=== PATIENT | female | born 1985 | race Caucasian/White ===

== ENCOUNTER 2020-01-20 10:40 | Outpatient (CLI) | payer OTHER, SELFPAY ==
[2020-01-20 11:36] LABS: Hematocrit 36.6 % (37.0-47.0); Hemoglobin 12.1 g/dL (12.0-15.0); Mean Corpuscular HGB Conc 33.1 g/dl (32-36); Mean Corpuscular Hemoglobin 28.4 pg (26-34); Mean Corpuscular Volume 85.9 fl (80-100); Mean Platelet Volume 9.6 fl (7.4-10.4); Platelet Count Result 271 k/mm3 (150-375); Red Blood Count 4.26 M/mm3 (4.2-5.4); White Blood Count 8.4 K/mm3 (4.5-10.0)
[2020-01-22 08:51] LABS: Rapid Plasma Reagin Non-Reactive (NonReactive)
== END 2020-01-20 10:41 | disposition home or self-care (01) ==
PROVIDERS: Visit Provider Obstetrics & Gynecology
DX: Z34.90 Encounter for supervision of normal pregnancy, unspecified, unspecified trimester (principal); Z3A.00 Weeks of gestation of pregnancy not specified
CPT/HCPCS: 36415; 85027; 86592; 86850; 86900; 86901

== ENCOUNTER 2020-01-22 11:24 | Inpatient (IN) | payer OTHER, SELFPAY ==
[2020-01-22] VITALS (41 sets, daily range): BP systolic 106–132; BP diastolic 55–85; PULSE 58–85; RESP 16–20; TEMP 36.1–36.3; O2SAT 96–100; BMI 31.7
[2020-01-22] MEDS: LACTATED RINGERS 1,000 ML 999 ML IV CONT (11:45)
--- NOTE | 2020-01-22 11:58 | LDADM ---
This patient, Milli Pinto, was admitted to Labor/Delivery/Recovery 120 on 01/22/20 at 11:24. Plans for labor, pain management and were discussed with patient. Patient/family oriented to hospital policies and general routines including ID bracelet, bed and alarms, visiting hours, pain management, procedures, bathroom and other care routines, personal items, smoking policy, room service/diet and guest tray routines, security routines, and visiting hours. Patient/Family are encouraged to report perceived risks to care and to ask questions if they do not understand what they are told or what they should do. See OBIX for further documentation.
--- NOTE | 2020-01-22 12:22 | WPDANESEPPF ---
Anes - Initial Pre Proc Eval Procedure: Operation Date: 01/22/20 13:30 Proposed Procedures p Repeat Section - Marc Gray MD Date/Time: 01/22/20 12:22 Surgeon: Marc Gray MD Pre Op Diagnosis: Scheduled C Section Patient Data Age: 34 Gender: F Height: 1.65 m Weight: 86.5 kg Last Vital Signs Pulse 83 01/22/20 12:01 BP 127/84 01/22/20 12:01 Allergies Allergy/AdvReac Type Severity Reaction Status Date / Time cephalexin Allergy Unknown RASH Unverified 01/30/19 11:02 Home Medications Medication Instructions Recorded Confirmed Type [id number] fumarate-FA 1 tablet PO DAILY 01/22/20 01/22/20 History [] ferrous sulfate [Slow Fe] 142 mg PO DAILY 01/22/20 01/22/20 History levothyroxine 112 mcg PO DAILY 01/22/20 01/22/20 History Patient hx anesthesia problems: none Family hx anesthesia problems: none PMFSH Past Medical History Medical History (Updated 01/22/20 @ 12:23 by King Miles MD) GDM (gestational diabetes mellitus) PIH ( induced hypertension) Family History Family History (Updated 01/15/20 @ 13:36 by Dee Chaidez RN) Mother Breast cancer Hypertension Father Hypertension Grandparent Diabetes mellitus Grandparent Ovarian cancer Social History Social History Smoking status: Never smoker Second hand tobacco smoke exposure: No Substance use: never Gender identity (if verbalized by the patient): Female Sexual Orientation (if Verbalized by the Patient): Straight or Heterosexual Spiritual care concerns: No Anes - Eval Final PreProcedure Day of Procedure 01/22/20 12:22 Patient weight: obese Heart: regular rate and rhythm Lungs: clear to auscultation and normal air movement Airway: Mallampati scale class II Neurological: alert and oriented Last oral intake: >/= 8 hours ASA classification: III Emergent: no Anesthetic plan: proceed Anesthesia type and monitoring: regional spinal Informed Consent: The patient's anesthetic plan and its attendant risks and benefits were discussed with the patient/family/POA. Questions were solicited and answers provided to the satisfaction of the patient/family/POA.
--- NOTE | 2020-01-22 12:50 | PM.IMHP ---
H&P: HPI History of Present Illness Chief complaint: Scheduled C Section Narrative: Milli Pinto is a 34 year old female This patient is a 35-year-old multiparous female with previous delivery. We have agreed to perform repeat delivery. She denies any contractions, loss of fluid, vaginal bleeding. She denies any chest pain or shortness of breath. She denies any nausea, vomiting, fever, chills. She denies any blurry vision, epigastric pain. She denies any edema. patient's was complicated with gestational hypertension. We have agreed to perform at 37 weeks. Review of Systems Constitutional: Constitutional: Reports no additional constitutional complaints, Denies fatigue, Denies headache(s), Denies lethargy and Denies weakness Eyes: Eyes: Reports no additional eye complaints, Denies blurry vision and Denies photophobia ENT: Reports as per HPI, Denies headache(s) and Denies neck pain Cardiovascular: Cardiovascular: Denies chest pain, Denies diaphoresis, Denies leg edema, Denies palpitations and Denies dyspnea Respiratory: Respiratory: Denies hemoptysis, Denies dyspnea and Denies wheezing Gastrointestinal: Gastrointestinal: Denies abdominal pain, Denies melena, Denies bloating, Denies hematochezia, Denies nausea and Denies vomiting Genitourinary: Genitourinary: Reports no additional female genitourinary complaints Musculoskeletal: Musculoskeletal: Denies joint swelling, Denies neck pain, Denies numbness and Denies stiffness Neurologic: Denies Abnormal speech present, Denies confusion, Denies headache(s), Denies numbness and Denies weakness Psychiatric: Psychiatric: Denies anxiety, Denies confusion, Denies depression, Denies homicidal ideation and Denies suicidal ideation Endocrine: Endocrine: Denies fatigue and Denies palpitations Allergic/Immunologic: Allergic/Immunologic: Denies wheezing PMFSH Past Medical History Medical History (Updated 01/22/20 @ 12:23 by King Miles MD) GDM (gestational diabetes mellitus) PIH ( induced hypertension) Family History Family History (Updated 01/15/20 @ 13:36 by Dee Chaidez RN) Mother Breast cancer Hypertension Father Hypertension Grandparent Diabetes mellitus Grandparent Ovarian cancer Social History Social History Smoking status: Never smoker Second hand tobacco smoke exposure: No Substance use: never Gender identity (if verbalized by the patient): Female Sexual Orientation (if Verbalized by the Patient): Straight or Heterosexual Spiritual care concerns: No Meds Home Medications and Allergies Home Medications Medication Instructions Recorded Confirmed Type [id number] fumarate-FA 1 tablet PO DAILY 01/22/20 01/22/20 History [] ferrous sulfate [Slow Fe] 142 mg PO DAILY 01/22/20 01/22/20 History levothyroxine 112 mcg PO DAILY 01/22/20 01/22/20 History Allergies Allergy/AdvReac Type Severity Reaction Status Date / Time cephalexin Allergy Mild RASH Verified 01/22/20 12:49 Vital Signs Vital Signs - 24 hr 01/22/20 11:46 01/22/20 12:01 Pulse Rate 85 83 Blood Pressure 123/85 127/84 Exam Const: General: healthy appearing, comfortable and no acute distress; No confusion Orientation/consciousness: No confusion Eyes: Direct Ophthalmoscopy: No photophobia Resp: Auscultation: clear to auscultation bilaterally, no rales, no rhonchi and no wheezes Cardio: Rate: regular rate Heart sounds: no click, no murmurs and no rubs GI: Inspection: non-distended GI Palp: No abdominal tenderness Auscultation: normal bowel sounds Neuro: General: No confusion Speech: No Abnormal speech present Extrem: General: normal to inspection, no pedal edema and no calf tenderness Assessment and Plan Assessment and plan (1) Previous section: Code(s): Z98.891 - History of uterine scar from previous surgery Status: Acute (2) PIH ( induced hypert
[2020-01-22] MEDS: LACTATED RINGERS 1,000 ML 125 ML IV CONT (12:59)
[2020-01-22] MEDS: CLINDAMYCIN 900 MG/NS 50 ML 900 MG/50 ML PIGGYBACK 50 MG IVPB (13:00)
[2020-01-22] MEDS: KETOROLAC 30 MG/ML VIAL (*BKC) IV PUSH (13:46)
--- NOTE | 2020-01-22 14:16 | P.OP_ITS ---
Procedure Note - Detailed Date of procedure: 01/22/20 Pre-op diagnosis: Scheduled C Section previous , gdm, ghtn Post-op diagnosis: same Procedure performed: low-transverse delivery Description of procedure: The patient was taken the operating room. She was prepped and draped in the dorsal supine position with leftward tilt after induction of spinal anesthetic. When anesthesia was found to be adequate a low- transverse skin incision was made and carried down to the level the fascia with the knife.The old scar was resected with the scalpel in an eliptical fashoin. The fascial incision was made at the midline with a scalpel. The fascial incision was extended laterally with Diez scissors. The fascia was tented upward superior and inferior with Carroll clamps. The rectus muscles were dissected off bluntly. The rectus muscles at the midline. The preperitoneal fat was dissected bluntly at the superior aspect of the separate the rectus muscles. The peritoneal cavity was entered bluntly in the same area. The peritoneal incision was extended superior and inferior with good visualization of bladder. Bladder blade was inserted. A low-transverse incision was made on the uterus with the scalpel. It was carried down the level of the amniotic cavity with a knife. The amniotic cavity bluntly. The uterine incision was made laterally with blunt traction. The infant was delivered. The cord was clamped and cut. The was handed off to waiting pediatric staff. Cord bloods were obtained. The placenta was removed manually. The uterus was exteriorized. Uterus cleared of all clots and debris. Uterus closed in 0 Vicryl in a running locked fashion. An imbricating layer of 0 Vicryl was also placed on the to bolster the closure. The uterus was returned to the abdomen. The gutters were cleared of all clots and debris. The fascia was closed 0 Vicryl in a running fashion. Subcutaneous tissue was irrigated and bleeding areas were cauterized. Scar in the sucutaneous fat was excised to allow the retracter skin to return to a flat orientation in the area of the incision. The skin was closed with subcuticular 4O monocryl. The incision was covered with derma mccracken. The patient tolerated the procedure well. She was taken recovery room stable condition. Sponge, lap, needle counts were correct x2. Anesthesia: spinal Surgeon: Marc Gray MD Estimated blood loss (mL): 240 Drains: No Packing: No Pathology: none sent Complications: No immediate complications Condition: stable Disposition: floor Findings: Retraction of the skin at the old incision site, otherwise Normal maternal anatomy. Average size infant with normal Apgars.
--- NOTE | 2020-01-22 14:56 | SUR.PHASEI ---
1430 INTO OBR VIA STRETCHER. MONITORS APPLIED. IVF INFUSING WELL. INTERIANO DRAINING CLEAR YELLOW. SCD'S REMAIN, DRESSING DRY AND INTACT, FUNDUS FIRM AND SMALL LOCHIA....SOME NAUSEA, WILL GIVE ZORFAN.
[2020-01-22] MEDS: LORATADINE 10 MG TABLET (17:23)
[2020-01-22] MEDS: OXYTOCIN 30 UNITS/NS 500 ML 30 UNITS/500 ML BAG 125 UNITS IV CONT (17:24)
--- NOTE | 2020-01-22 17:36 | SUR.PHASEI ---
1630 RECOVERY COMPLETE. ASSESSMENT REMAINS STABLE EXCEPT THE OFF AND ON NAUSEA SHE WAS MEDICATED FOR AT 1442. IV GOING AT 125 PER PUMP, SCD'S REMAIN DRESSING DRY AND INTACT AND PP REMAINS THE SAME. REPORT TO YOSELIN SALAZAR RN AND READY FOR TRANSPORT.
--- NOTE | 2020-01-22 17:55 | PC.NURSE ---
Addendum entered by Melani Giordano RN 01/22/20 17:55: admitted to unit at 1655. Original Note: Patient transferred to post room #284 per stretcher. Support person present. Oriented to unit, room, information board, rooming in, admission packet and security measures. Patient verbalizes understanding.
[2020-01-22] MEDS: diphenhydrAMINE HCl INJ 50 MG/ML VIAL 25 MG IV PUSH (19:03)
[2020-01-22] MEDS: ONDANSETRON INJ 4 MG/2 ML VIAL IV PUSH (20:22)
[2020-01-22] MEDS: SIMETHICONE 80 MG TAB.CHEW PO (20:22)
[2020-01-23] MEDS: SIMETHICONE 80 MG TAB.CHEW PO ×7 (02:25→23:31)
[2020-01-23] MEDS: ONDANSETRON INJ 4 MG/2 ML VIAL IV PUSH (02:26)
[2020-01-23] MEDS: KETOROLAC 30 MG/ML VIAL (*BKC) IV PUSH (02:29)
[2020-01-23 05:23] VITALS: BP 106/67; PULSE 54; RESP 18; TEMP 37; O2SAT 100
[2020-01-23 05:50] LABS: Basophils Percent Auto 0.5 % (0.2-1.2); Eosinophils Absolute Auto 0.1 K/mm3 (0-0.3); Eosinophils Percent Auto 1.5 % (0-4.4); Hematocrit 30.7 % (37.0-47.0); Hemoglobin 10.2 g/dL (12.0-15.0); Immature Granulocyte Absolute 0.04 K/mm3 (0.00-0.031); Immature Granulocyte Percent A 0.5 % (0-0.5); Lymphocytes Absolute Auto 2.47 K/mm3 (0.9-3.2); Lymphocytes Percent Auto 29.2 % (18.3-44.2); Mean Corpuscular HGB Conc 33.2 g/dl (32-36); Mean Corpuscular Hemoglobin 28.3 pg (26-34); Mean Corpuscular Volume 85.3 fl (80-100); Mean Platelet Volume 9.7 fl (7.4-10.4); Monocytes Absolute Auto 0.7 K/mm3 (0.1-0.6); Monocytes Percent Auto 8.3 % (2.6-8.5); Neutrophils Absolute Auto 5.1 K/mm3 (1.3-6.7); Platelet Count Result 228 k/mm3 (150-375); White Blood Count 8.5 K/mm3 (4.5-10.0)
[2020-01-23] MEDS: LEVOTHYROXINE SODIUM 112 MCG TABLET PO (06:56)
--- NOTE | 2020-01-23 07:52 | P.PNOB_ITS ---
OB - PN: Subj Subjective Date/time seen: 01/23/20 07:52 Patient comments: no complaints, pain well controlled, tolerating diet and flatus present OB - PN: Obj Data Labs CBC & Chem 7: 01/23/20 05:27 Labs: Laboratory Results - last 24 hr 01/23/20 05:27 WBC 8.5 RBC 3.60 L Hgb 10.2 L Hct 30.7 L MCV 85.3 MCH 28.3 MCHC 33.2 RDW 15.0 H Plt Count 228 MPV 9.7 Immature Gran % (Auto) 0.5 Neut % (Auto) 60.0 Lymph % (Auto) 29.2 [place] % (Auto) 8.3 Eos % (Auto) 1.5 Baso % (Auto) 0.5 Lymph # (Auto) 2.47 [place] # (Auto) 0.7 H Eos # (Auto) 0.1 Baso # (Auto) 0.0 Abs Immat Gran (auto) 0.04 H Absolute Neuts (auto) 5.1 Absolute Nucleated RBC 0.0 Nucleated RBC % 0.0 OB - PN A/P Plan day: 1 Comments: Post Op LTCS - no problems, routine recovery Time Spent With Patient Time: Total time spent is greater than 50% in coordination of care (as do cumented) at patient's floor/unit and/or counseling patient: Exam Const: General: cooperative, healthy appearing, comfortable and no acute distress Resp: Auscultation: no crackles, no rales, no rhonchi and no wheezes Cardio: Rhythm: regular rhythm Heart sounds: no click and no murmurs GI: Inspection: non-distended Auscultation: normal bowel sounds Extrem: General: normal to inspection, no pedal edema and no calf tenderness
[2020-01-23 08:10] VITALS: BP 113/69; PULSE 71; RESP 18; TEMP 36.7; O2SAT 99
[2020-01-23] MEDS: MULTIVIT/MIN/PREN/FOL AC/IRON TABLET 1 TAB PO (08:28)
[2020-01-23] MEDS: DOCUSATE SODIUM 100 MG CAPSULE PO ×2 (08:28→15:58)
[2020-01-23] MEDS: IBUPROFEN 600 MG TABLET PO ×2 (09:02→15:58)
[2020-01-23 12:30] VITALS: BP 119/74; PULSE 68; RESP 99; TEMP 36.6; O2SAT 18
--- NOTE | 2020-01-23 14:20 | PC.NURSE ---
Consult with pt., mother reports is eagerly latching without difficulties or discomfort. Mother states is sleepy and has gone 5 hours before feeding. Reviewed early 37 week infants are freq sleepy and need to be awoke to feed and stimulated while feeding to keep awake and feeding effectively for increased intake and assist in maintaining deep latch. Mother reports other children have been very gassy and fussy do to her increased fatty milk Reviewed other possibilities of heavy let down or imbalance of fore and hind milk. Discussed this may not effect this infant and to call if she should have issued after discharge. Requested mother call out for next feeding.
--- NOTE | 2020-01-23 15:07 | WPDANLDPN2 ---
Anes-Prog Note L&D Date/Time: 01/23/20 15:07 Comfortable throughout: section Neuraxial method: spinal Epidural/Spinal procedure site: clean & non-tender Neuro status: Neuro function grossly intact. Cardiovascular status: normal Respiratory status: normal Airway patency: baseline Mental status: baseline Post-Op hydration status: normal Vital Signs: Last Vital Signs Temp 98.1 F 01/23/20 08:10 Pulse 71 01/23/20 08:10 Resp 18 01/23/20 08:10 BP 113/69 01/23/20 08:10 Pulse Ox 99 01/23/20 08:10 I/O: Intake & Output 01/22/20 01/23/20 01/23/20 23:59 07:59 15:59 Intake Total 100 2000 Output Total 900 1500 400 Balance -800 500 -400 Post-procedural complaints: none Patient feedback: Patient satisfied with anesthetic care.
--- NOTE | 2020-01-23 15:08 | WPDANLDNPN2 ---
Anes-Prog Note L&D-Neuraxial Date/Time: 01/23/20 15:08 Neuraxial medications: intrathecal PF morphine Opiod-related complaints: pruritis severe, treatment refractory Patient feedback: Patient satisfied with post-operative pain management.
[2020-01-23] MEDS: LANOLIN (LANSINOH) 7.5 GM CREAM 1 APPLIC TOPICAL (16:00)
--- NOTE | 2020-01-23 16:16 | PC.NURSE ---
Patient instructed on viewing the discharge video Mother & Baby Care, The First Two Weeks . Patient was given the opportunity and encouraged to ask questions. Patient verbalized understanding of information shared and has been given the mother/baby guide for home reference. Pt. has watched with previous children.
[2020-01-23 20:00] VITALS: BP 121/80; PULSE 74; RESP 16; TEMP 36.3; O2SAT 98
[2020-01-24] MEDS: SIMETHICONE 80 MG TAB.CHEW PO ×2 (03:21→09:04)
[2020-01-24] MEDS: IBUPROFEN 600 MG TABLET PO ×2 (03:21→09:04)
--- NOTE | 2020-01-24 08:39 | PM.OBPNVD ---
OB - PN: Subj Subjective Date/time seen: 01/24/20 08:39 Patient comments: no complaints, pain well controlled, incisional pain, tolerating diet and flatus present OB - PN: Obj Data Labs CBC & Chem 7: 01/23/20 05:27 OB - PN A/P Plan day: 2 Plan: routine care Comments: POD#2 LTCS - no problems, to d/c Time Spent With Patient Time: Total time spent is greater than 50% in coordination of care (as documented) at patient's floor/unit and/or counseling patient: Exam Const: General: comfortable, no acute distress and alert Resp: Effort & Inspection: normal respiratory effort Auscultation: no crackles, no rales and no rhonchi Cardio: Rate: regular rate Heart sounds: no click, no murmurs and no rubs GI: Inspection: non-distended GI Palp: No Tenderness to palpation present (GI) Auscultation: normal bowel sounds Other: Incision - CDI Extrem: General: normal to inspection, no pedal edema and no calf tenderness
[2020-01-24 08:40] VITALS: BP 127/78; PULSE 66; RESP 18; TEMP 37.3; O2SAT 100
--- NOTE | 2020-01-24 08:40 | PM.OBDSVD ---
DS: Admitting Diagnosis Admitting Diagnosis Admitting Diagnosis: History of uterine scar from previous surgery DS: Discharge Diagnosis Discharge Diagnosis (1) GDM (gestational diabetes mellitus): Code(s): O24.419 - Gestational diabetes mellitus in , unspecified control Status: Acute (2) PIH ( induced hypertension): Code(s): O13.9 - Gestational [-induced] hypertension without significant proteinuria, unspecified trimester Status: Acute (3) Previous section: Code(s): Z98.891 - History of uterine scar from previous surgery Status: Acute OB - DS: Summary OB Procedures : None OB Procedures Intrapartum: Tubal ligation OB Procedures: : None Peripartum Data Delivery Method: Section Procedures: Procedures Operation Date: 01/22/20 13:30 Actual Procedures Side Surgeon p Section Marc Gray MD complications: none Time Spent with Patient Time attestation: Total time spent providing and/or coordinating discharge services: Discharge Plan Discharge Discharging Clinician: Marc Gray Patient Disposition: Home, Self-Care Activity: pelvic rest Diet: regular Wound Care Instructions: follow printed instructions Patient Instructions: Antibiotic Form Stand Alone Forms: General Discharge Information Follow-up/Referrals: Marc Gray MD [Physician] - Discharge Medications: New hydrocodone-acetaminophen 5-325 mg tablet 1 - 2 tablet PO Q4H PRN (Reason: pain) Qty: 25 RF: 0 Continued levothyroxine 112 mcg tablet 112 mcg PO DAILY RF: 0 Slow Fe 142 mg (45 mg iron) Tablet Extended Release 142 mg PO DAILY RF: 0 28-800 mg-mcg Tablet 1 tablet PO DAILY RF: 0 Date of admission: 01/22/20 11:24 Primary Care Provider: PHYSICIAN,ETHYLBENZENE CONVERTER HELPER Admitting Provider: Marc Gray Attending physician on admission: Marc Gray
[2020-01-24] MEDS: MULTIVIT/MIN/PREN/FOL AC/IRON TABLET 1 TAB PO (09:04)
[2020-01-24] MEDS: DOCUSATE SODIUM 100 MG CAPSULE PO (09:04)
--- NOTE | 2020-01-24 09:10 | PC.NURSE ---
Mother is able to independently latch infant with appropriate positioning/alignment. She denies any nipple discomfort, is feeding as required and waking to feed if needed. has had at least 8 effective feedings in the past 24 hours, and is currently meeting outcomes for weight, output, jaundice and feeding frequencies. Mother states she feels confident to continue effective at home and will supplement at times. Reviewed transition to breast milk, signs of adequate intake, and engorgement/relief. Instructed to call ICP if intake/output less than required. Reviewed regular medications mother is taking. Information provided per Diana. Reviewed community resources on the [facility] website and in the Mom/Baby guide. Information on outpatient services provided. Mother has no further questions at this time.
[2020-01-26 10:49] VITALS: BP 129/85; PULSE 74; RESP 20; TEMP 37.1; O2SAT 97
== END 2020-01-24 12:01 | disposition home or self-care (01) | DRG 788 ==
LOC: ANHLDR 11:30 → ANHOB2 17:02
PROVIDERS: Admitting Provider Obstetrics & Gynecology; Visit Provider Obstetrics & Gynecology
PROC: 10D00Z1 Extraction of Products of Conception, Low, Open Approach (ICD-10-PCS; CPT 59514; principal; 2020-01-22 13:30)
DX: O34.211 Maternal care for low transverse scar from previous cesarean delivery (principal); Z37.0 Single live birth; Z3A.37 37 weeks gestation of pregnancy; O24.429 Gestational diabetes mellitus in childbirth, unspecified control; O13.4 Gestational [pregnancy-induced] hypertension without significant proteinuria, complicating childbirth; O99.214 Obesity complicating childbirth; E66.9 Obesity, unspecified
CPT/HCPCS: 36415; 85025; A9270; J0131; J1200; J1885; J2274; J2370; J2405; J2590; J2765; J3010; J7120

== ENCOUNTER 2022-04-03 08:29 | Outpatient (CLI) | payer OTHER, SELFPAY ==
[2022-04-03 21:36] LABS: Free T4 Free Thyroxine 1.27 ng/mL (0.78-2.19)
[2022-04-03 22:07] LABS: Folic Acid > 20.0 ng/mL (2.76->20)
[2022-04-03 23:08] LABS: Hemoglobin A1C 4.7 % (<5.7)
[2022-04-06 02:13] LABS: Thyroid Peroxidase Antibodies 141 IU/mL (<9)
[2022-04-10 08:21] LABS: Gliadin AB, IgG 2.2
[2022-04-10 08:22] LABS: TTG IGA AB <1.0
== END 2022-04-03 08:30 | disposition home or self-care (01) ==
PROVIDERS: PCP Internal Medicine; Visit Provider Internal Medicine
DX: O24.419 Gestational diabetes mellitus in pregnancy, unspecified control (principal); D64.9 Anemia, unspecified; R14.0 Abdominal distension (gaseous); E03.9 Hypothyroidism, unspecified
CPT/HCPCS: 36415; 82607; 82746; 83036; 83516; 84439; 84443; 86376

== ENCOUNTER 2022-08-07 08:55 | Outpatient (CLI) | payer OTHER, SELFPAY ==
[2022-08-07 19:19] LABS: Basophils Absolute Auto 0.1 K/mm3 (0.0-0.1); Eosinophils Absolute Auto 0.2 K/mm3 (0-0.3); Eosinophils Percent Auto 4.3 % (0-4.4); Hematocrit 42.1 % (37.0-47.0); Hemoglobin 13.8 g/dL (12.0-15.0); Immature Granulocyte Absolute 0.01 K/mm3 (0.00-0.031); Immature Granulocyte Percent A 0.2 % (0-0.5); Lymphocytes Percent Auto 29.5 % (18.3-44.2); Mean Corpuscular HGB Conc 32.8 g/dl (32-36); Mean Corpuscular Hemoglobin 30.7 pg (26-34); Mean Corpuscular Volume 93.8 fl (80-100); Mean Platelet Volume 9.3 fl (7.4-10.4); Monocytes Absolute Auto 0.4 K/mm3 (0.1-0.6); Monocytes Percent Auto 8.2 % (2.6-8.5); Neutrophils Absolute Auto 2.5 K/mm3 (1.3-6.7); Neutrophils Percent Auto 55.8 % (45.5-73.1); Platelet Count Result 321 k/mm3 (150-375); Red Blood Count 4.49 M/mm3 (4.2-5.4); Red Cell Distribution Width 12.8 % (11.5-14.5); White Blood Count 4.4 K/mm3 (4.5-10.0)
[2022-08-07 20:08] LABS: Thyroid Stimulating Hormone 0.735 uIU/mL (0.465-4.680)
== END 2022-08-07 08:56 | disposition home or self-care (01) ==
LOC: ANHGOSHLAB 08:56
PROVIDERS: PCP Internal Medicine; Visit Provider Internal Medicine
DX: D64.9 Anemia, unspecified (principal); E03.9 Hypothyroidism, unspecified; F41.1 Generalized anxiety disorder; E06.3 Autoimmune thyroiditis
CPT/HCPCS: 36415; 82728; 84443; 85025; 86038; 86039

== ENCOUNTER 2023-04-15 14:21 | Outpatient (CLI) | payer OTHER, SELFPAY ==
[2023-04-15 20:18] LABS: Basophils Absolute Auto 0.1 K/mm3 (0.0-0.1); Basophils Percent Auto 0.7 % (0.2-1.2); Eosinophils Absolute Auto 0.3 K/mm3 (0-0.3); Eosinophils Percent Auto 4.5 % (0-4.4); Hematocrit 40.3 % (37.0-47.0); Hemoglobin 13.3 g/dL (12.0-15.0); Immature Granulocyte Absolute 0.02 K/mm3 (0.00-0.031); Immature Granulocyte Percent A 0.3 % (0-0.5); Lymphocytes Absolute Auto 1.93 K/mm3 (0.9-3.2); Mean Corpuscular Hemoglobin 31.5 pg (26-34); Mean Corpuscular Volume 95.5 fl (80-100); Mean Platelet Volume 9.9 fl (7.4-10.4); Monocytes Absolute Auto 0.4 K/mm3 (0.1-0.6); Monocytes Percent Auto 5.7 % (2.6-8.5); Neutrophils Absolute Auto 4.2 K/mm3 (1.3-6.7); Neutrophils Percent Auto 60.8 % (45.5-73.1); Platelet Count Result 344 k/mm3 (150-375); Red Blood Count 4.22 M/mm3 (4.2-5.4); Red Cell Distribution Width 11.6 % (11.5-14.5); White Blood Count 6.9 K/mm3 (4.5-10.0)
[2023-04-15 20:50] LABS: Free T4 Free Thyroxine 1.06 ng/mL (0.78-2.19)
== END 2023-04-15 14:22 | disposition home or self-care (01) ==
LOC: ANHGOSHLAB 14:23
PROVIDERS: PCP Internal Medicine; Visit Provider Internal Medicine
DX: D64.9 Anemia, unspecified (principal); E03.9 Hypothyroidism, unspecified; E06.3 Autoimmune thyroiditis; R76.8 Other specified abnormal immunological findings in serum; L65.9 Nonscarring hair loss, unspecified; R23.2 Flushing
CPT/HCPCS: 36415; 82728; 84439; 84443; 85025

== ENCOUNTER 2025-06-11 22:51 | Outpatient (CLI) | payer OTHER, SELFPAY ==
[2025-06-11] VITALS (12 sets, daily range): BP systolic 130–143; BP diastolic 90–93; PULSE 94–103; O2SAT 95–99; BMI 33.3
--- NOTE | 2025-06-11 22:51 | PC.NURSE ---
Pt arrives to unit with elevated blood pressure at home.
[2025-06-11 23:44] LABS: Add Urine Microscopic? NO; Appearance Urine Clear (Clear); Glucose Urine UA Negative (Negative); Hematocrit 35.4 % (37.0-47.0); Hemoglobin 12.0 g/dL (12.0-15.0); Immature Granulocyte Percent A 0.4 % (0-0.5); Leukocyte Esterase Ur Negative LEU/UL (Negative); Lymphocytes Absolute Auto 2.09 K/mm3 (0.9-3.2); Mean Corpuscular HGB Conc 33.9 g/dl (32-36); Mean Corpuscular Hemoglobin 28.5 pg (26-34); Mean Corpuscular Volume 84.1 fl (80-100); Nitrate Urine Negative (Negative); Nucleated Red Blood Cells Absolute Auto 0.000 K/mm3 (0.0-0.012); Nucleated Red Blood Cells Perc 0.0 % (0.0-0.2); Platelet Count Result 286 k/mm3 (150-375); Red Blood Count 4.21 M/mm3 (4.2-5.4); Specific Grav Ur 1.006 (1.001-1.035); White Blood Count 9.0 K/mm3 (4.5-10.0)
[2025-06-11 23:50] LABS: Total Protein Urine Random 15 mg/dL; Ur Ttl Prot Creatinine Ratio 0.72 mg/mg (0-0.20)
[2025-06-11 23:54] LABS: Alanine Aminotransferase 23 U/L (6-35); Albumin Level 3.5 g/dL (3.5-5.1); Alkaline Phosphatase 136 U/L (38-126); Anion Gap 6 mmol/L (4-12); Aspartate Amino Transferase 28 U/L (14-36); Bilirubin,Total 0.3 mg/dL (0.2-1.3); Blood Urea Nitrogen 8 mg/dL (7-17); Calcium 9.3 mg/dL (8.4-10.2); Carbon Dioxide 20 mmol/L (22-30); Chloride 107 mmol/L (98-107); Estimated CRCL calculation 154 ml/min; Estimated Glomerular Filt Rate > 60; Glucose 168 mg/dL (65-110); Potassium 3.6 mmol/L (3.4-5.0); Sodium 133 mmol/L (137-145); Total Protein 7.0 g/dL (6.3-8.2); Uric Acid 3.3 mg/dL (2.5-7.5)
[2025-06-12] VITALS (13 sets, daily range): BP systolic 125–143; BP diastolic 88–93; PULSE 89–99; TEMP 36.5; O2SAT 96–98
--- NOTE | 2025-06-12 01:18 | PC.NURSE ---
Called Dr. Gray, update on pt, labs, and blood pressure. Orders received to discharge pt with instructions to keep next scheduled appointment this week and when to return to the unit.
--- NOTE | 2025-06-12 01:33 | PC.NURSE ---
Pt discharged with instructions to keep next scheduled appointment this week and when to return to the unit, pt verbalizes understanding.
== END 2025-06-12 01:33 | disposition home or self-care (01) ==
LOC: ANHOBOP 22:57 → ANHOBPP 23:01
PROVIDERS: PCP Internal Medicine; Visit Provider Obstetrics & Gynecology
DX: O13.9 Gestational [pregnancy-induced] hypertension without significant proteinuria, unspecified trimester (principal); Z3A.00 Weeks of gestation of pregnancy not specified
CPT/HCPCS: 36415; 59025; 80053; 81003; 82570; 84156; 84550; 85025; 99199

== ENCOUNTER 2025-06-14 13:08 | Inpatient (IN) | payer OTHER, SELFPAY ==
[2025-06-14] VITALS (187 sets, daily range): BP systolic 77–153; BP diastolic 55–128; PULSE 25–140; RESP 13–20; TEMP 36.4; O2SAT 88–100; BMI 33.5
[2025-06-14] MEDS: LACTATED RINGERS 1,000 ML 125 ML IV CONT (13:40)
[2025-06-14] MEDS: ACETAMINOPHEN 500 MG TABLET 1000 MG PO (13:40)
--- NOTE | 2025-06-14 13:42 | PM.IMHP2 ---
H&P: HPI History of Present Illness Date/Time: 06/14/25 13:42 Chief Complaint: Term Narrative: The patient is a 39-year-old multiple prior section, unwanted fertility and gestational hypertension here at 37 weeks gestation. Multiple recent elevated blood pressures. We have agreed to proceed with repeat delivery and bilateral salpingectomy. She understands risks, benefits, and alternative. She has completed informed consent process and is ready to proceed. The patient understands the details of the procedure. The procedure has been explained in detail. She understands the risks. She understands that injuries may occur that result in hospitalization, more surgery, and severe illness. She understands risk of hemorrhage and infection. She denies any chest pain or shortness of breath. She denies any nausea, vomiting, fever, chills. Review of Systems Review of Systems: All systems reviewed & are unremarkable except as noted in HPI and below Constitutional: Constitutional: Denies chills, Denies fatigue, Denies fever(s) and Denies weakness Eyes: Eyes: Denies blurry vision, Denies change in vision, Denies loss of peripheral vision, Denies loss of vision, Denies other visual disturbances and Denies eye pain ENT: Denies vertigo, Denies dizziness, Denies hearing loss, Denies mouth pain, Denies nasal obstruction, Denies neck mass and Denies neck pain Cardiovascular: Cardiovascular: Denies chest pain, Denies diaphoresis, Denies syncope, Denies leg edema and Denies dyspnea Respiratory: Respiratory: Denies chest congestion, Denies cough, Denies hemoptysis, Denies dyspnea and Denies wheezing Gastrointestinal: Gastrointestinal: Denies abdominal pain, Denies constipation, Denies diarrhea, Denies nausea and Denies vomiting Genitourinary: Genitourinary: Denies hematuria, Denies change in libido, Denies nocturia, Denies genital lesions, Denies flank pain and Denies urinary urgency Musculoskeletal: Musculoskeletal: Denies abnormal gait, Denies back pain, Denies myalgias, Denies arthralgias, Denies joint swelling, Denies muscle weakness and Denies neck pain Integumentary/Breasts: Skin/Breast: Denies swelling, Denies breast pain, Denies breast mass, Denies dry skin, Denies nipple discharge, Denies unusual bruising and Denies jaundice Neurologic: Denies Neuro-related abnormal movements, Denies Abnormal speech present, Denies abnormal gait, Denies behavioral changes, Denies confusion, Denies vertigo, Denies dizziness, Denies syncope, Denies loss of vision, Denies memory loss, Denies convulsions and Denies weakness Psychiatric: Psychiatric: Denies abnormal sleep pattern, Denies behavioral changes, Denies change in libido, Denies confusion, Denies depression, Denies anhedonia and Denies memory loss Endocrine: Endocrine: Reports no additional endocrine complaints, Denies change in libido and Denies fatigue Hematologic/Lymphatic: Hematologic/Lymphatic: Reports no additional hematologic/lymphatic complaints Allergic/Immunologic: Allergic/Immunologic: Reports no additional allergic/immunologic complaints and Denies wheezing PMFSH Past Medical History Medical History Acquired hypothyroidism Anemia Anxiety GDM (gestational diabetes mellitus) Generalized anxiety disorder PIH ( induced hypertension) Thyroid disorder Surgical History Surgical History H/O breast augmentation 2009 [place] teeth removed 2003 Family History Family History Mother Breast cancer Hypertension Thyroid disorder Father Hypertension Grandparent Diabetes mellitus Grandparent Ovarian cancer Heart disease Sibling Asthma Social History Social History (Reviewed 04/19/23 @ 11:42 by Yani Vargas [facility]) Smoking status: Never smoker Second hand tobacco smoke exposure: No Alcohol intake: current Substance use: never Substance use type: does not use Lack of Transportation: No Lack of Food: Never True Current Housing: I Have Housing Concerned About Future Housing: No Difficulty Paying Gas/Electric Bills: No Difficulty Paying for Meds: No Currently Unemployed: No Education: Bachelor's Degree Difficulty w/ Childcare or Family Care: No Gender identity (if verbalized by the patient): Female Sexual Orientation (if Verbalized by the Patient): Straight or Heterosexual Spiritual care concerns: No Meds Home Medications and Allergies Home Medications ?Medication ?Instructions ?Recorded ?Confirmed ?Type yqvfighbeohg-Kz-udpl-minerals 1 tablet PO DAILY 03/23/22 06/12/25 History aspirin 81 mg tablet,delayed 162 mg PO DAILY 03/29/25 06/12/25 History release (Adult Aspirin Regimen) levothyroxine 112 mcg tablet 125 mcg PO DAILY 03/29/25 06/12/25 History Allergies Allergy/AdvReac Type Severity Reaction Status Date / Time cephalexin Allergy Mild RASH Verified 06/12/25 14:53 Vital Signs Vital Signs - 24 hr 06/14/25 13:40 Pulse Rate 97 Blood Pressure 139/99 H Exam Const: General: cooperative, healthy appearing, comfortable and no acute distress Orientation/consciousness: oriented to person, oriented to place and oriented to time HENMT: Head: normal to inspection Ears: external ears normal Face/Nose/Sinus: Normal external nose present and normal facial exam Face and sinus: normal facial exam Eyes: General: appearance normal, both eyes and all related structures Neck: Neck: normal visual inspection, trachea midline and supple Resp: Auscultation: clear to auscultation bilaterally, no crackles, no rales, no rhonchi and no wheezes Cardio: Rate: regular rate Rhythm: regular rhythm Heart sounds: no click, no murmurs and no rubs GI: GI Palp: No abdominal tenderness, No Soft to palpation, No Tenderness to palpation present (GI) and No Palpable mass present Auscultation: normal bowel sounds Skin: General skin exam: normal color and no rashes or lesions noted Neuro: General: oriented to person, oriented to place and oriented to time Extrem: General: normal to inspection, no joint enlargement, no clubbing, cyanosis or edema, no pedal edema and no calf tenderness Psych: Appearance: grossly normal Mental Status: mental status grossly normal Speech and movement: Normal speech and movement present Assessment and Plan Assessment and plan (1) Unwanted fertility: Code(s): Z30.09 - Encounter for other general counseling and advice on contraception Status: Acute (2) PIH ( induced hypertension): Code(s): O13.9 - Gestational [-induced] hypertension without significant proteinuria, unspecified trimester Status: Acute (3) GDM (gestational diabetes mellitus): Code(s): O24.419 - Gestational diabetes mellitus in , unspecified control Status: Acute (4) Previous section: Code(s): Z98.891 - History of uterine scar from previous surgery Status: Acute Plan The patient is a 39-year-old multiple prior section, unwanted fertility and gestational hypertension here at 37 weeks gestation. Multiple recent elevated blood pressures. We have agreed to proceed with repeat delivery and bilateral salpingectomy. She understands risks, benefits, and alternative. She has completed informed consent process and is ready to proceed.
[2025-06-14] MEDS: ONDANSETRON INJ 4 MG/2 ML VIAL IV PUSH (13:43)
[2025-06-14] MEDS: FAMOTIDINE 20 MG/2 ML VIAL IV PUSH (13:43)
[2025-06-14] MEDS: SCOPOLAMINE 1 MG PATCH 1 PATCH TRANSDERM (13:44)
--- NOTE | 2025-06-14 13:44 | WPDHPUPDATE1 ---
History and Physical Update Update Date/Time: 06/14/25 13:44 History and Physical has been reviewed, including an updated exam of the patient. There are NO changes in the patient's condition. Risks, benefits, and alternatives have been discussed and questions answered. Patient agrees to proceed with procedure.
[2025-06-14 13:52] LABS: Hematocrit 40.2 % (37.0-47.0); Hemoglobin 13.7 g/dL (12.0-15.0); Immature Granulocyte Percent A 0.4 % (0-0.5); Lymphocytes Absolute Auto 2.07 K/mm3 (0.9-3.2); Mean Corpuscular HGB Conc 34.1 g/dl (32-36); Mean Corpuscular Hemoglobin 29.0 pg (26-34); Mean Corpuscular Volume 85.0 fl (80-100); Nucleated Red Blood Cells Absolute Auto 0.000 K/mm3 (0.0-0.012); Nucleated Red Blood Cells Perc 0.0 % (0.0-0.2); Platelet Count Result 288 k/mm3 (150-375); Red Blood Count 4.73 M/mm3 (4.2-5.4); White Blood Count 9.5 K/mm3 (4.5-10.0)
[2025-06-14] MEDS: ceFAZolin 2 GM in SODIUM CHLORIDE 0.9% IV 50 ML 100 ML IVPB (14:12)
[2025-06-14 14:19] LABS: Alanine Aminotransferase 22 U/L (6-35); Albumin Level 4.0 g/dL (3.5-5.1); Alkaline Phosphatase 163 U/L (38-126); Anion Gap 7 mmol/L (4-12); Aspartate Amino Transferase 50 U/L (14-36); Bilirubin,Total 0.6 mg/dL (0.2-1.3); Blood Urea Nitrogen 9 mg/dL (7-17); Calcium 9.8 mg/dL (8.4-10.2); Carbon Dioxide 20 mmol/L (22-30); Chloride 107 mmol/L (98-107); Estimated CRCL calculation 144 ml/min; Estimated Glomerular Filt Rate > 60; Glucose 65 mg/dL (65-110); Potassium 4.2 mmol/L (3.4-5.0); Sodium 134 mmol/L (137-145); Total Protein 7.9 g/dL (6.3-8.2); Uric Acid 4.0 mg/dL (2.5-7.5)
--- NOTE | 2025-06-14 14:53 | S_PTH ---
PATIENT: Milli Pinto LOC: [facility] U#:[id number] AGE/SX: 39/F ROOM: 286 RE06/14/[address]: Wei Gray MD : [id number] BED: 00 DIS: 06/16/2025 SPEC #: [id number] RECD: 06/15/25 07:34 STATUS: SHIRLEY REQ #: [id number] ELIZABETH: 06/14/25 14:[address]: Wei Gray DEPT: [facility] RECD BY: Janette Duong ENTERED: 06/15/25 07:34 SP TYPE: Surgical OTHR DR: Juan Martinez DO Tissues: A - Fallopian Tube Bilateral Procedures: Gross and Microscopic Level 2 Hematoxylin and Eosin Stain
--- NOTE | 2025-06-14 15:08 | W.PM.OBCSD ---
OB - Delivery Note Procedure Delivery date: 06/14/25 Pre-op diagnosis: Previous Delivery Post-op Diagnosis: Same Procedure Performed: Repeat and Tubal Ligation Surgeon: Wei Gray MD Anesthesia type: Spinal Description of Procedure/Findings: The patient was taken the operating room.? She was prepped and draped in dorsal supine position with a leftward tilt.? This was done after spinal anesthetic was applied.? A low-transverse skin incision was made and carried down till of the fascia with the knife.? The fascial incision was made with the knife.? The fascial incision was extended laterally with Diez scissors.? The fascia was tented upward superiorly and inferiorly the rectus muscles were dissected off bluntly.? The rectus muscles were the midline.? The preperitoneal fat and peritoneum were dissected open bluntly at the superior aspect of the rectus muscles.? The peritoneal incision was extended superior and inferior with good position of bladder.? The uterine incision was made with a scalpel down to the level of the amniotic cavity.? The amniotic cavity was entered bluntly.? The was delivered.? The cord was clamped and cut and the was handed off to waiting pediatric staff.? Cord bloods were obtained.? The placenta was removed manually.? The uterus was exteriorized.? The uterus was cleared of all clots, debris and membranes.? The uterus was closed in 0 Vicryl running lock fashion.? imbricating layer of 0 Vicryl was placed also. Each fallopian tube was grasped and raised with a Cliff.? With from the underlying venous structures.? The mesosalpinx between the tube and the rest the adnexa was cauterized and transected with LigaSure cautery.? It was performed from the distal tube near the ovary in a stepwise fashion towards the cornua.? The tube at the cornua was cauterized transected with LigaSure cautery.? This was performed in a bilateral fashion. The uterus was returned to the abdomen.? The gutters were cleared of all clots and debris.? The fascia was closed with 0 Vicryl running fashion.? The subcutaneous tissue was irrigated pinpoint bleeders were cauterized.? The skin was closed with subcuticular absorbable jeffy.? The skin incision line was covered with glue.? The patient tolerated the procedure well.? She has taken recovery room in stable condition.? Sponge lap and needle counts were correct x2.? Specimen: No Estimated Blood Loss: 500 Packing: No Pathology: None sent Complications: No immediate complications Condition: Stable
[2025-06-14] MEDS: OXYTOCIN 30 UNITS/NS 500 ML 30 UNITS/500 ML BAG 125 UNITS IV CONT (16:24)
[2025-06-14 16:26] LABS: Syphilis IgG/IgM Antibody Non-Reactive (Nonreactive)
--- NOTE | 2025-06-14 16:29 | ECG_ITS ---
Test Date: 2025-06-14 18:26:31 Measurements Intervals [place] Rate: 64 P: 23 PA: 174 QRS: 25 QRSD: 83 T: 8 QT: 377 QTc: 391 Interpretive Statements SINUS RHYTHM WITH MARKED SINUS ARRHYTHMIA BORDERLINE ST-T WAVE ABNORMALITY- ANTERIOR LEADS BORDERLINE ECG No previous ECG available for comparison Electronically Signed On 06-14-2025 20:41:44 [employer] by David Rose D.O.
[2025-06-14] MEDS: SIMETHICONE 80 MG TAB.CHEW PO (17:02)
[2025-06-14] MEDS: LIDOCAINE 5% PATCH 1 PATCH TRANSDERM (17:50)
--- NOTE | 2025-06-14 18:00 | SUR.PHASEI ---
1530-pt states she feels like her blood sugar is low and requesting some juice to drink. Juice given to pt. 1552-blood glucose of 72 after 2 juice cups. Pt states that is where she normally starts to feel symptomatic with low blood sugar. Chase crackers and peanut butter given per pt request. 1620-pt states she still feels dizzy, lightheaded, nauseous and woozy. Pt's pulse oximeter not reading well. Pt's heart rate was auscultated with an irregular rhythm noted. 1626-anesthesia notified of pt's symptoms and nurse's assessment. New orders received for a 12-lead EKG, O2 and more juice. 1630-juice given. 1634-O2 10L per non-rebreather started. 1636-Dr. Pringle at bedside and states pt is having PACs and discussing plan of care with pt. 1639-O2 discontinued per Dr. Pringle. 1735-pt still feeling woozy and nauseous. Blood glucose 62 when rechecked. 174-turkey sandwich and juice given per pt request. 181-report given to oncoming shift nurse.
[2025-06-14] MEDS: DEXTROSE 5%/LACTATED RINGERS 1,000 ML 200 ML IV CONT (19:13)
--- NOTE | 2025-06-14 19:40 | PC.NURSE ---
Patient offered Tylenol and Toradol. Patient declined.
[2025-06-14 21:24] LABS: Calcium 9.9 mg/dL (8.4-10.2); Magnesium 1.7 mg/dL (1.6-2.3)
--- NOTE | 2025-06-14 21:59 | PC.NURSE ---
1800-Report obtained from Yvonne Forrest RN 182- EKG performed. RN had EKG read by ED physician. ED physician suggested tele monitoring on patient due to symptoms and EKG reading, but could not give orders due to not assessing patient. RN relayed information to Dr. Gray and charger operator helper. sound ranging crewmember notified house admin, house admin suggested transfer of patient to higher level facility. Dr. Gray on unit during this discussion, Dr. Gray discussed patient care with house admin, house admin spoke to unit admin, unit admin agreed pt would have to be transferred to a different facility if tele monitoring was needed. Dr. Gray discussed plan of care with patient, patient would like to stay at this facility if higher level of care facility would not accept her and her baby to be transferred together. Dr. Gray recommended transfer to patient due to possible risks per what the ED physician with the EKG and patient symptoms. Dr. Gray consulted [facility] they accepted transfer. Dr. Gray consulted with Dr. Mario with anesthesia, Dr. Mario read EKG, Dr. Mario did not agree that patient needs tele monitoring. Dr. Gray discussed this with patient, patient would like to stay at this facility. Dr. Gray gave lab orders to be done, and to repeat them again in the morning. 2015- RN notified Dr. Gray of patient's blood sugars after being on IV fluids, Dr. Gray gave orders to discontinue IVF. 2147- RN notified Dr. Gray of lab results, MD gave no new orders.
[2025-06-15] VITALS (52 sets, daily range): BP systolic 114–123; BP diastolic 76–88; PULSE 63–101; RESP 16–18; TEMP 36.6–37.2; O2SAT 93–100
--- NOTE | 2025-06-15 01:40 | PC.NURSE ---
Patient offered Tylenol and Toradol. Patient declined.
--- NOTE | 2025-06-15 04:15 | PC.NURSE ---
Urinary Catheter removed at this time.
[2025-06-15 04:51] LABS: Hematocrit 32.9 % (37.0-47.0); Hemoglobin 10.9 g/dL (12.0-15.0); Immature Granulocyte Percent A 0.5 % (0-0.5); Lymphocytes Absolute Auto 1.96 K/mm3 (0.9-3.2); Mean Corpuscular HGB Conc 33.1 g/dl (32-36); Mean Corpuscular Hemoglobin 28.5 pg (26-34); Mean Corpuscular Volume 86.1 fl (80-100); Nucleated Red Blood Cells Absolute Auto 0.000 K/mm3 (0.0-0.012); Nucleated Red Blood Cells Perc 0.0 % (0.0-0.2); Platelet Count Result 241 k/mm3 (150-375); Red Blood Count 3.82 M/mm3 (4.2-5.4); White Blood Count 11.3 K/mm3 (4.5-10.0)
[2025-06-15 05:11] LABS: Alanine Aminotransferase 19 U/L (6-35); Albumin Level 2.9 g/dL (3.5-5.1); Alkaline Phosphatase 119 U/L (38-126); Anion Gap -1 mmol/L (4-12); Aspartate Amino Transferase 38 U/L (14-36); Bilirubin,Total 0.3 mg/dL (0.2-1.3); Blood Urea Nitrogen 8 mg/dL (7-17); Calcium 8.7 mg/dL (8.4-10.2); Carbon Dioxide 27 mmol/L (22-30); Chloride 104 mmol/L (98-107); Estimated CRCL calculation 134 ml/min; Estimated Glomerular Filt Rate > 60; Glucose 79 mg/dL (65-110); Magnesium 1.5 mg/dL (1.6-2.3); Potassium 3.8 mmol/L (3.4-5.0); Sodium 130 mmol/L (137-145); Total Protein 5.7 g/dL (6.3-8.2)
[2025-06-15] MEDS: ACETAMINOPHEN 500 MG TABLET 1000 MG PO ×3 (05:52→18:50)
[2025-06-15] MEDS: KETOROLAC 15 MG/ML VIAL (*BKC) IV PUSH ×2 (06:20→12:26)
[2025-06-15] MEDS: LEVOTHYROXINE SODIUM 125 MCG TABLET PO (06:20)
[2025-06-15] MEDS: SIMETHICONE 80 MG TAB.CHEW PO ×3 (06:26→16:37)
--- NOTE | 2025-06-15 08:19 | OBPPTRN ---
Patient transferred to post room # 286 via wheelchair. Support person present. Oriented to unit, room, information board, rooming in, admission packet and security measures. Patient verbalizes understanding.
[2025-06-15] MEDS: MULTIVIT/MIN/PREN/FOL AC/IRON TABLET 1 TAB PO (10:08)
[2025-06-15] MEDS: DOCUSATE SODIUM 100 MG CAPSULE PO ×2 (10:08→16:37)
--- NOTE | 2025-06-15 10:39 | WPDANLDPN2 ---
Anes-Prog Note L&D Date/Time: 06/15/25 10:39 Comfortable throughout: section Neuraxial method: spinal Epidural/Spinal procedure site: clean & non-tender Neuro status: Neuro function grossly intact. Cardiovascular status: normal Respiratory status: normal Airway patency: baseline Mental status: baseline Post-Op hydration status: normal Vital Signs: Last Vital Signs Temp 36.6 C 06/15/25 08:25 Pulse 72 06/15/25 08:25 Resp 16 06/15/25 08:25 BP 114/81 06/15/25 08:25 Pulse Ox 98 06/15/25 08:25 O2 Del Method Room Air 06/14/25 20:00 O2 Flow Rate 10 06/14/25 16:35 Pain score (VAS): 2 I/O: Intake & Output 06/14/25 06/15/25 06/15/25 23:59 07:59 15:59 Intake Total 233.3 Output Total 850 1925 Balance -616.7 1920 Patient feedback: Patient satisfied with anesthetic care.
--- NOTE | 2025-06-15 10:39 | WPDANLDNPN2 ---
Anes-Prog Note L&D-Neuraxial Date/Time: 06/15/25 10:39 Neuraxial medications: intrathecal PF morphine Opiod-related complaints: none Patient feedback: Patient satisfied with post-operative pain management.
[2025-06-15] MEDS: TETANUS,DIPHTHERIA,AC PERTUSSIS ADULT (0.5 ML) BOOSTRIX IM (12:25)
--- NOTE | 2025-06-15 14:32 | PC.NURSE ---
Mother verbalizes she is able to independently latch with appropriate positioning and alignment. She denies any nipple discomfort and is responsively . Infant is currently meeting outcomes for weight, output, jaundice, blood sugar and knows that feeding frequencies should be 8-12 times in 24 hours. Per mother she is also supplementing as needed. Mother declines any additional assistance or education at this time. Mother is encouraged to call for assistance if her doesn?t latch, pain with latching, questions or concerns. Mother voiced understanding of information shared along with the mom/baby guide for an additional resource. Reported to the Primary RN.
--- NOTE | 2025-06-15 15:55 | PM.OBPNVD ---
OB - PN: Subj Subjective Date/time seen: 06/15/25 15:55 Patient comments: no complaints, pain well controlled, tolerating diet and flatus present OB - PN: Obj Data Labs 06/15/25 04:38 06/15/25 04:38 Labs: Laboratory Results - last 24 hr 06/14/25 06/14/25 06/14/25 13:40 15:56 17:35 WBC RBC Hgb Hct MCV MCH MCHC RDW Plt Count MPV Immature Gran % (Auto) Neut % (Auto) Lymph % (Auto) [place] % (Auto) Eos % (Auto) Baso % (Auto) Lymph # (Auto) [place] # (Auto) Eos # (Auto) Baso # (Auto) Abs Immat Gran (auto) Absolute Neuts (auto) Absolute Nucleated RBC Nucleated RBC % Sodium Potassium Chloride Carbon Dioxide Anion Gap BUN Creatinine Estim Creat Clear Calc Estimated GFR Glucose POC Capillary Glucose 72 62 L Calcium 9.9 Phosphorus 4.9 H Magnesium 1.7 Total Bilirubin AST ALT Alkaline Phosphatase Total Protein Albumin Syphilis IgG/IgM Ab Non-reactive 06/14/25 06/14/25 06/14/25 18:36 20:15 20:16 WBC RBC Hgb Hct MCV MCH MCHC RDW Plt Count MPV Immature Gran % (Auto) Neut % (Auto) Lymph % (Auto) [place] % (Auto) Eos % (Auto) Baso % (Auto) Lymph # (Auto) [place] # (Auto) Eos # (Auto) Baso # (Auto) Abs Immat Gran (auto) Absolute Neuts (auto) Absolute Nucleated RBC Nucleated RBC % Sodium Potassium Chloride Carbon Dioxide Anion Gap BUN Creatinine Estim Creat Clear Calc Estimated GFR Glucose POC Capillary Glucose 70 161 H 155 H Calcium Phosphorus Magnesium Total Bilirubin AST ALT Alkaline Phosphatase Total Protein Albumin Syphilis IgG/IgM Ab 06/15/25 04:38 WBC 11.3 H RBC 3.82 L Hgb 10.9 L Hct 32.9 L MCV 86.1 MCH 28.5 MCHC 33.1 RDW 14.1 Plt Count 241 MPV 8.8 Immature Gran % (Auto) 0.5 Neut % (Auto) 73.8 H Lymph % (Auto) 17.3 L [place] % (Auto) 7.0 Eos % (Auto) 1.0 Baso % (Auto) 0.4 Lymph # (Auto) 1.96 [place] # (Auto) 0.8 H Eos # (Auto) 0.1 Baso # (Auto) 0.1 Abs Immat Gran (auto) 0.06 H Absolute Neuts (auto) 8.4 H Absolute Nucleated RBC 0.000 Nucleated RBC % 0.0 Sodium 130 L Potassium 3.8 Chloride 104 Carbon Dioxide 27 Anion Gap -1 L BUN 8 Creatinine 0.54 L Estim Creat Clear Calc 134 Estimated GFR > 60 Glucose 79 POC Capillary Glucose Calcium 8.7 Phosphorus 4.6 H Magnesium 1.5 L Total Bilirubin 0.3 AST 38 H ALT 19 Alkaline Phosphatase 119 Total Protein 5.7 L Albumin 2.9 L Syphilis IgG/IgM Ab OB - PN A/P Plan day: 1 Comments: Post Op LTCS - no problems, routine recovery Time Spent With Patient Time: Total time spent is greater than 50% in coordination of care (as documented) at patient's floor/unit and/or counseling patient: Exam Const: General: cooperative, healthy appearing, comfortable and no acute distress Resp: Auscultation: no crackles, no rales, no rhonchi and no wheezes Cardio: Rhythm: regular rhythm Heart sounds: no click and no murmurs GI: Inspection: non-distended Auscultation: normal bowel sounds Extrem: General: normal to inspection, no pedal edema and no calf tenderness
[2025-06-15] MEDS: IBUPROFEN 600 MG TABLET PO (18:50)
[2025-06-16] MEDS: ACETAMINOPHEN 500 MG TABLET 1000 MG PO ×3 (01:00→13:15)
[2025-06-16] MEDS: IBUPROFEN 600 MG TABLET PO ×3 (01:00→13:15)
[2025-06-16] MEDS: oxyCODONE HCL (*CRX) 5 MG TAB IR PO (02:48)
[2025-06-16] MEDS: LEVOTHYROXINE SODIUM 125 MCG TABLET PO (07:23)
[2025-06-16] MEDS: MULTIVIT/MIN/PREN/FOL AC/IRON TABLET 1 TAB PO (12:00)
[2025-06-16] MEDS: DOCUSATE SODIUM 100 MG CAPSULE PO (12:00)
[2025-06-16] MEDS: SIMETHICONE 80 MG TAB.CHEW PO (12:00)
[2025-06-16 12:22] VITALS: BP 128/92; PULSE 86; RESP 18; TEMP 36.8; O2SAT 98
[2025-06-18 10:20] VITALS: BP 136/86; PULSE 82; RESP 18; TEMP 36.6; O2SAT 100
== END 2025-06-16 15:07 | disposition home or self-care (01) | DRG 539 ==
LOC: ANHLDR 13:10 → ANHOBPP 06-15 01:58 → ANHOB2 06-15 08:20
PROVIDERS: Admitting Provider Obstetrics & Gynecology; PCP Internal Medicine; Visit Provider Obstetrics & Gynecology
PROC: (CPT 59514; principal; 2025-06-27 07:30)
DX: O13.4 Gestational [pregnancy-induced] hypertension without significant proteinuria, complicating childbirth (principal); O99.284 Endocrine, nutritional and metabolic diseases complicating childbirth; E03.9 Hypothyroidism, unspecified; O24.429 Gestational diabetes mellitus in childbirth, unspecified control; Z3A.37 37 weeks gestation of pregnancy; Z37.0 Single live birth; Z30.2 Encounter for sterilization
CPT/HCPCS: 36415; 80053; 81003; 82310; 82570; 82948; 83735; 84100; 84156; 84550; 85025; 86593; 86850; 86900; 86901; 88302; 90715; 93005; J0690; A9270; J1885; J2274; J2371; J2405; J2590; J7120; J7121